=== PATIENT | male | born 1970 | race Two or more races ===

== ENCOUNTER 2021-03-12 13:18 | Inpatient (IN) | payer OTHER ==
[~2021-03-12] VITALS: Ht 172.7 cm; Wt 127.7 kg
[2021-03-12 16:06] LABS: BASOPHIL 0.3 % (0-2); EOSINOPHIL 1.2 % (0-5); HCT 46.8 % (42.0-52.0); HGB 15.4 g/dl (13.2-18.0); LYMPHOCYTE 13.8 % (15-48); MCH 31.2 pg (25.0-31.0); MCHC 32.9 g/dL (32.0-36.0); MCV 94.9 fL (78.0-100.0); MONOCYTE 13.2 % (0-12); MPV 9.4 fL (6.0-9.5); NEUTROPHIL 71.2 % (41-80); NRBC 0; PLT 255 K/uL (150-400); RBC 4.93 M/uL (4.70-6.00); RDW 12.7 % (11.5-14.0); WBC 11.9 K/uL (4.0-10.5)
[2021-03-12 16:27] LABS: BILIRUBIN NEGATIVE (NEGATIVE); BLOOD NEGATIVE Ery/uL (NEGATIVE); CLARITY CLEAR (CLEAR); COLOR YELLOW (YELLOW); GLUCOSE (U) NORMAL (NORMAL); LEUKOCYTES NEGATIVE Leu/uL (NEGATIVE); NITRITE NEGATIVE (NEGATIVE); PROTEIN NEGATIVE (NEGATIVE); SPECIFIC GRAVITY 1.015 (1.001-1.030)
[2021-03-12 16:32] LABS: AMPHETAMINES NEGATIVE (NEGATIVE); BARBITURATES NEGATIVE (NEGATIVE); ECSTASY (MDMA) NEGATIVE (NEGATIVE); MARIJUANA (THC) NEGATIVE (NEGATIVE); METHADONE NEGATIVE (NEGATIVE); OPIATES NEGATIVE (NEGATIVE); OXYCODONE NEGATIVE (NEGATIVE)
[2021-03-12 16:33] LABS: CREATININE 1.12 mg/dL (0.67-1.17); POTASSIUM 3.6 mmol/L (3.5-5.1)
[2021-03-12 16:34] LABS: ALBUMIN 3.3 g/dL (3.4-5.0); BILIRUBIN - TOTAL 3.5 mg/dL (0.2-1.0); GLOBULIN (CALCULATION) 4.5 g/dL; TOTAL PROTEIN 7.8 g/dL (6.4-8.2)
[2021-03-12 18:39] LABS: LACTIC ACID 0.9 mmol/L (0.4-1.9)
[2021-03-12] MEDS ORDERED: LIPITOR40 MG PO (22:46)
[2021-03-12] MEDS ORDERED: PRINIVIL10 MG PO (22:47)
[2021-03-12] MEDS ORDERED: LOPRESSOR50 MG PO (22:47)
[2021-03-12] MEDS ORDERED: CLARITIN10 MG PO (22:48)
[2021-03-12] MEDS ORDERED: CHILDREN'S ASPI81 MG PO (22:49)
[2021-03-13 06:50] LABS: BASOPHIL 0.3 % (0-2); EOSINOPHIL 1.4 % (0-5); HCT 43.6 % (42.0-52.0); HGB 14.2 g/dl (13.2-18.0); LYMPHOCYTE 11.4 % (15-48); MCH 31.2 pg (25.0-31.0); MCHC 32.6 g/dL (32.0-36.0); MCV 95.8 fL (78.0-100.0); MONOCYTE 11.9 % (0-12); MPV 9.7 fL (6.0-9.5); NEUTROPHIL 74.8 % (41-80); NRBC 0; PLT 245 K/uL (150-400); RBC 4.55 M/uL (4.70-6.00); RDW 12.8 % (11.5-14.0); WBC 9.7 K/uL (4.0-10.5)
[2021-03-13 07:19] LABS: ALBUMIN 2.9 g/dL (3.4-5.0); BILIRUBIN - TOTAL 2.7 mg/dL (0.2-1.0); BUN/CREAT RATIO (CALC) 13.1 RATIO; CREATININE 1.07 mg/dL (0.67-1.17); GLOBULIN (CALCULATION) 4.2 g/dL; POTASSIUM 4.1 mmol/L (3.5-5.1); TOTAL PROTEIN 7.1 g/dL (6.4-8.2)
[2021-03-14 06:29] LABS: BASOPHIL 0.4 % (0-2); EOSINOPHIL 3.1 % (0-5); HCT 41.3 % (42.0-52.0); HGB 13.7 g/dl (13.2-18.0); LYMPHOCYTE 13.1 % (15-48); MCH 31.6 pg (25.0-31.0); MCHC 33.2 g/dL (32.0-36.0); MCV 95.2 fL (78.0-100.0); MPV 9.6 fL (6.0-9.5); NEUTROPHIL 72.2 % (41-80); NRBC 0; PLT 265 K/uL (150-400); RBC 4.34 M/uL (4.70-6.00); RDW 12.4 % (11.5-14.0); WBC 8.3 K/uL (4.0-10.5)
[2021-03-14 07:07] LABS: ALBUMIN 2.7 g/dL (3.4-5.0); BILIRUBIN - TOTAL 2.2 mg/dL (0.2-1.0); BUN/CREAT RATIO (CALC) 10.6 RATIO; CREATININE 0.94 mg/dL (0.67-1.17); GLOBULIN (CALCULATION) 4.2 g/dL; MAGNESIUM 2.2 mg/dL (1.8-2.4); POTASSIUM 3.7 mmol/L (3.5-5.1); TOTAL PROTEIN 6.9 g/dL (6.4-8.2)
[2021-03-15 07:01] LABS: BASOPHIL 0.7 % (0-2); EOSINOPHIL 4.1 % (0-5); HCT 42.7 % (42.0-52.0); HGB 14.1 g/dl (13.2-18.0); LYMPHOCYTE 15.7 % (15-48); MCH 31.3 pg (25.0-31.0); MCV 94.7 fL (78.0-100.0); MONOCYTE 11.5 % (0-12); MPV 9.2 fL (6.0-9.5); NEUTROPHIL 67.7 % (41-80); NRBC 0; PLT 277 K/uL (150-400); RBC 4.51 M/uL (4.70-6.00); RDW 12.2 % (11.5-14.0); WBC 7.2 K/uL (4.0-10.5)
[2021-03-15 07:07] LABS: ALBUMIN 2.8 g/dL (3.4-5.0); BILIRUBIN - TOTAL 1.4 mg/dL (0.2-1.0); BUN/CREAT RATIO (CALC) 7.1 RATIO; CREATININE 0.98 mg/dL (0.67-1.17); GLOBULIN (CALCULATION) 4.3 g/dL; MAGNESIUM 2.3 mg/dL (1.8-2.4); POTASSIUM 3.9 mmol/L (3.5-5.1); TOTAL PROTEIN 7.1 g/dL (6.4-8.2)
[2021-03-15] MEDS ORDERED: AUGMENTIN 875-1 EACH PO (09:46)
== END 2021-03-15 12:42 | disposition home or self-care (01) | DRG 392 ==
LOC: FER 13:18 → FMS 19:22
PROVIDERS: Nurse Practitioner; Nurse Practitioner Family; ADMIT Internal Medicine
DX: K57.20 Diverticulitis of large intestine with perforation and abscess without bleeding (principal); Z68.41 Body mass index [BMI] 40.0-44.9, adult; I10 Essential (primary) hypertension; E66.01 Morbid (severe) obesity due to excess calories; E78.5 Hyperlipidemia, unspecified; R73.03 Prediabetes; Z20.822 Contact with and (suspected) exposure to COVID-19; K21.9 Gastro-esophageal reflux disease without esophagitis; E80.6 Other disorders of bilirubin metabolism; Z98.890 Other specified postprocedural states; Z82.49 Family history of ischemic heart disease and other diseases of the circulatory system; Z83.3 Family history of diabetes mellitus; Z79.82 Long term (current) use of aspirin; Z87.891 Personal history of nicotine dependence; Z79.899 Other long term (current) drug therapy
CPT/HCPCS: 36415; 71275; 76870; 80053; 80305; 81003; 82150; 83036; 83605; 83690; 83735; 84145; 84484; 85025; 85379; 87040; 93005; C9113; J1885; J2543; J7030; Q9967; U0002